=== PATIENT | male | born 1960 | race Caucasian/White ===

== ENCOUNTER 2021-05-30 05:36 | Inpatient (IN) | payer OTHER ==
[~2021-05-30] VITALS: Ht 172.7 cm; Wt 87.7 kg
[~2021-05-30 05:36] MED LIST: ASPI-1450 PO; ATOR10TA84 PO; RINGERS SOLUTION,LACTATED 1,000 ML IV ONE
[2021-05-30] MEDS ORDERED: ETHYL ALCOHOL 62% ANTISEPTIC NASAL INHALANT 0.6 ML AMPUL NASAL ONE (06:00)
[2021-05-30 06:11] LABS: COVID AG,FIA SOURCE NASOPHARYNGEAL
[2021-05-30] MEDS ORDERED: TRANEXAMIC ACID 1,000 MG/10 ML VIAL ONE (06:23)
[2021-05-30] MEDS ORDERED: BUPIVACAINE HCL 0.5% 50 ML VIAL ONE (06:23)
[2021-05-30] MEDS ORDERED: SODIUM CL IRRIG SOLN BAG 3,000 ML IRRIG ONE (06:24)
[2021-05-30] MEDS ORDERED: ZOLPIDEM TARTRATE 5 MG TABLET PO PRN (06:30)
[2021-05-30] MEDS ORDERED: CYCLOBENZAPRINE HCL 10 MG TABLET PO PRN (06:30)
[2021-05-30] MEDS ORDERED: FentaNYL CITRATE PF 100 MCG/2 ML VIAL IVP PRN (06:30)
[2021-05-30] MEDS ORDERED: MEPERIDINE-PF 25 MG/ML VIAL IVP PRN (06:30)
[2021-05-30] MEDS ORDERED: CELECOXIB 200 MG CAPSULE PO ONE (06:30)
[2021-05-30] MEDS ORDERED: ONDANSETRON HCL 4 MG/2 ML VIAL IVP PRN ×2 (06:30→09:45)
[2021-05-30] MEDS ORDERED: BUPIVACAINE LIPOSOME/PF 1.3%-13.3MG/ML SUSPENSION 20 ML VIAL INJ ONE (06:30)
[2021-05-30] MEDS ORDERED: OxyCODONE HCL 5 MG IR TABLET PO PRN (06:30)
[2021-05-30] MEDS ORDERED: HYDROmorphone 2 MG/ML VIAL IVP PRN ×2 (06:30)
[2021-05-30] MEDS ORDERED: TRANEXAMIC ACID 1,000 MG in DEXTROSE 5%-WATER 50 ML IV ONE (06:30)
[2021-05-30] MEDS ORDERED: CELECOXIB 200 MG CAPSULE ONE (06:38)
[2021-05-30] MEDS ORDERED: SODIUM CHLORIDE 0.9% 50 ML ONE (06:40)
[2021-05-30] MEDS ORDERED: VANCOMYCIN HCL 1 GM/VIAL ONE (07:11)
[2021-05-30] MEDS: OXYGEN THERAPY IH SCH (08:00)
[2021-05-30] MEDS ORDERED: BISACODYL 10 MG RECTAL RECTAL SUPPOSITORY PR PRN (09:45)
[2021-05-30] MEDS ORDERED: DiphenhydrAMINE HCL 50 MG/ML VIAL IVP PRN (09:45)
[2021-05-30] MEDS ORDERED: BENZOCAINE/MENTHOL LOZENGE PO PRN (09:45)
[2021-05-30] MEDS ORDERED: MAG HYDROX/AL HYDROX/SIMETH 30 ML SUSP UDCUP PO PRN (09:45)
[2021-05-30 10:25] VITALS: BP 126/83
[2021-05-30] MEDS ORDERED: SODIUM CHLORIDE 0.9% 250 ML IV ONE ×2 (13:15→14:11)
[2021-05-30] MEDS: ACETAMINOPHEN 1000 MG/ISO-OSM 100 ML IV SCH ×3 (14:19→23:47)
[2021-05-30] MEDS: CeFAZolin 1 GM/DEXTROSE 50 ML IV SCH ×2 (14:40→22:13)
[2021-05-30 15:31] VITALS: BP 111/73
[2021-05-30] MEDS: DOCUSATE SODIUM 100 MG CAPSULE PO SCH (19:56)
[2021-05-30] MEDS: FAMOTIDINE 20 MG TABLET PO SCH (19:56)
[2021-05-30] MEDS: CELECOXIB 200 MG CAPSULE PO SCH (19:56)
[2021-05-30 20:00] VITALS: BP 104/67
[2021-05-31 04:29] VITALS: BP 111/65
[2021-05-31 04:57] VITALS: BP 111/65
[2021-05-31] MEDS: ACETAMINOPHEN 1000 MG/ISO-OSM 100 ML IV SCH (05:59)
[2021-05-31] MEDS ORDERED: PROPOFOL 1% 20 ML VIAL IVP ONE (06:19)
[2021-05-31] MEDS ORDERED: DEXAMETHASONE SOD PHOS 4 MG/ML VIAL IVP ONE (06:19)
[2021-05-31] MEDS ORDERED: ONDANSETRON HCL 4 MG/2 ML VIAL IVP ONE (06:19)
[2021-05-31] MEDS ORDERED: MORPHINE SULFATE/PF 0.5 MG/ML 10 ML AMP IVP ONE (06:19)
[2021-05-31] MEDS ORDERED: FentaNYL CITRATE PF 100 MCG/2 ML VIAL IVP ONE (06:19)
[2021-05-31] MEDS ORDERED: MORPHINE SULFATE 4 MG/ML SYRINGE IVP ONE (06:19)
[2021-05-31] MEDS ORDERED: ROCURONIUM BROMIDE 10 MG/ML 5 ML VIAL IVP ONE (06:19)
[2021-05-31] MEDS ORDERED: 0.9% SODIUM CHLORIDE 10 ML VIAL IVP ONE (06:19)
[2021-05-31] MEDS ORDERED: LIDOCAINE/PF 2% 5 ML VIAL IM ONE (06:19)
[2021-05-31] MEDS ORDERED: MIDAZOLAM HCL 2 MG/2 ML VIAL IVP ONE (06:19)
[2021-05-31 06:52] LABS: BASOPHILS % (AUTO) 0.1 % (0.0-2.0); EOSINOPHILS % (AUTO) 0.2 % (1.0-6.0); HEMATOCRIT 37.8 % (41-53); HEMOGLOBIN 12.9 g/dL (13.5-17.5); LYMPHOCYTES # (AUTO) 1.1 K/uL (1.0-4.8); LYMPHOCYTES % (AUTO) 9.7 % (22.0-44.0); MEAN CORPUSCULAR HEMOGLOBIN 30.6 pg (26.0-34.0); MEAN CORPUSCULAR HGB CONC 34.1 G/dL (31.0-37.0); MEAN CORPUSCULAR VOLUME 90 fL (80-100); MONOCYTES # (AUTO) 0.7 K/uL (0.1-1.0); MONOCYTES % (AUTO) 6.6 % (2.0-9.0); NEUTROPHILS # (AUTO) 9.3 K/uL (1.8-7.7); NEUTROPHILS % (AUTO) 83.4 % (40.0-70.0); PLATELET COUNT (AUTO) 219 K/uL (150-450); RED BLOOD CELL COUNT(AUTO) 4.21 MIL/uL (4.50-5.90)
[2021-05-31 07:01] LABS: ANION GAP 6 mmol/L (8-16); CALCIUM, TOTAL 8.1 mg/dL (8.8-10.5); CARBON DIOXIDE 26 mmol/L (22-29); CHLORIDE 105 mmol/L (98-107); CREATININE 0.83 mg/dL (0.60-1.30); GLOMERULAR FILTR. RATE CALC > 60 mL/min (>60); GLUCOSE,RANDOM 129 mg/dL (70-110); POTASSIUM 4.4 mmol/L (3.5-5.1); SODIUM SERUM 137 mmol/L (136-145); UREA NITROGEN, BLOOD 18 mg/dL (7-18)
[2021-05-31 07:43] VITALS: BP 109/73
[2021-05-31] MEDS: OXYGEN THERAPY IH SCH ×2 (08:00→20:00)
[2021-05-31] MEDS: DOCUSATE SODIUM 100 MG CAPSULE PO SCH ×2 (09:01→19:58)
[2021-05-31] MEDS: FAMOTIDINE 20 MG TABLET PO SCH ×2 (09:01→19:58)
[2021-05-31] MEDS: ASPIRIN 81 MG CHEWABLE TABLET PO SCH ×2 (09:01→19:58)
[2021-05-31] MEDS: CELECOXIB 200 MG CAPSULE PO SCH ×2 (09:01→19:58)
[2021-05-31 16:25] VITALS: BP 111/69
[2021-05-31 19:32] VITALS: BP 117/70
[2021-05-31] MEDS: OxyCODONE HCL/ACETAMINOPHEN 10-325 MG TABLET PO PRN (21:39)
[2021-06-01 04:15] VITALS: BP 117/74
[2021-06-01] MEDS: OxyCODONE HCL/ACETAMINOPHEN 10-325 MG TABLET PO PRN (05:10)
[2021-06-01 06:17] LABS: BASOPHILS % (AUTO) 0.6 % (0.0-2.0); EOSINOPHILS % (AUTO) 1.6 % (1.0-6.0); HEMOGLOBIN 12.7 g/dL (13.5-17.5); LYMPHOCYTES # (AUTO) 1.9 K/uL (1.0-4.8); LYMPHOCYTES % (AUTO) 23.2 % (22.0-44.0); MEAN CORPUSCULAR HEMOGLOBIN 30.5 pg (26.0-34.0); MEAN CORPUSCULAR HGB CONC 34.3 G/dL (31.0-37.0); MEAN CORPUSCULAR VOLUME 89 fL (80-100); MONOCYTES # (AUTO) 0.8 K/uL (0.1-1.0); MONOCYTES % (AUTO) 9.2 % (2.0-9.0); NEUTROPHILS # (AUTO) 5.4 K/uL (1.8-7.7); NEUTROPHILS % (AUTO) 65.4 % (40.0-70.0); PLATELET COUNT (AUTO) 209 K/uL (150-450); RED BLOOD CELL COUNT(AUTO) 4.16 MIL/uL (4.50-5.90); RED CELL DISTRIBUTION WIDTH 14.4 % (11.5-14.5)
[2021-06-01] MEDS: OXYGEN THERAPY IH SCH (08:00)
[2021-06-01 08:07] VITALS: BP 122/76
[2021-06-01] MEDS: FAMOTIDINE 20 MG TABLET PO SCH (08:51)
[2021-06-01] MEDS: DOCUSATE SODIUM 100 MG CAPSULE PO SCH (08:51)
[2021-06-01] MEDS: CELECOXIB 200 MG CAPSULE PO SCH (08:52)
[2021-06-01] MEDS: ASPIRIN 81 MG CHEWABLE TABLET PO SCH (08:52)
[2021-06-01] MEDS ORDERED: ASPI81 PO (14:08)
== END 2021-06-01 14:30 | disposition home health service (06) | DRG 326 ==
LOC: 6N 05:36
PROVIDERS: ADMIT Orthopaedic Surgery; ATTEND Orthopaedic Surgery
PROC: 0SRC069 Replacement of Right Knee Joint with Oxidized Zirconium on Polyethylene Synthetic Substitute, Cemented, Open Approach (ICD-10-PCS; principal; 2021-05-30 07:55)
DX: M17.11 Unilateral primary osteoarthritis, right knee (principal); E78.5 Hyperlipidemia, unspecified; Z20.822 Contact with and (suspected) exposure to COVID-19; Z96.652 Presence of left artificial knee joint; I10 Essential (primary) hypertension; Z79.899 Other long term (current) drug therapy; Z79.82 Long term (current) use of aspirin
CPT/HCPCS: 80048; 85025; 87081; 88300; 97110; 97116; 97161; 97165; 97530; C9290; G0238; J0131; J0690; J1100; J2250; J2270; J2274; J2405; J2704; J3010; J3370; J3490; J7050; J7060; J7120